=== PATIENT | male | born 1975 | race African-American/Black ===

== ENCOUNTER 2018-04-27 10:31 | Emergency (ER) | payer OTHER ==
[~2018-04-27] VITALS: Ht 180.3 cm; Wt 95.3 kg
[2018-04-27 10:43] VITALS: BP 160/102
--- NOTE | 2018-04-27 10:50 | NUR ---
PATIENT PRESENTS TO ED WITH pt states he may have drank water which may have had methamphetamines in it. states it tasted funny and he felt weird afterwards. he does not know how it may have been tainted . DENIES N/V/D; SKIN IS PINK/WARM/DRY; AAOX4 WITH EVEN AND STEADY GAIT; LUNGS CLEAR BL; HR EVEN AND tachy; PT DENIES ANY FEVER, CP, SOB, OR COUGH AT THIS TIME; PATIENT STATES PAIN OF 0/10 AT THIS TIME; VSS; PATIENT POSITIONED FOR COMFORT; HOB ELEVATED; BEDRAILS UP X2; BED DOWN. ER MD MADE AWARE OF PT STATUS.
--- NOTE | 2018-04-27 11:21 | NUR ---
Patient being evaluated by physician at bedside.
[2018-04-27 11:28] VITALS: BP 158/107
--- NOTE | 2018-04-27 11:28 | NUR ---
dc instructions and rx given to pt by Patient discharged with v/s stable. Written and verbal after care instructions given and explained. Patient alert, oriented and verbalized understanding of instructions. Ambulatory with steady gait. All questions addressed prior to discharge. ID band removed. Patient advised to follow up with PMD. Rx of lisinopril/hctz given. Patient educated on indication of medication including possible reaction and side effects. Opportunity to ask questions provided and answered.
== END 2018-04-27 11:21 | disposition home or self-care (01) ==
LOC: MED 10:31
DX: F15.129 Other stimulant abuse with intoxication, unspecified (principal); I10 Essential (primary) hypertension; F17.210 Nicotine dependence, cigarettes, uncomplicated; Z88.8 Allergy status to other drugs, medicaments and biological substances
CPT/HCPCS: 99283

== ENCOUNTER 2022-01-20 19:33 | Emergency (ER) | payer OTHER ==
[~2022-01-20] VITALS: Ht 177.8 cm; Wt 90.7 kg
--- NOTE | 2022-01-20 20:23 | NUR ---
CALLED IN THE LOBBY AND OUTSIDE, NO ANSWER
[2022-01-20 21:08] VITALS: BP 112/77
--- NOTE | 2022-01-20 21:20 | NUR ---
CAME FOR MEDICAL CHECK AND MEDICATION FOR HIV. PARTNER IS + FOR HIV. TAKING ZOLOFT AND REMERON AT HOME NO MED HX
--- NOTE | 2022-01-20 22:36 | NUR ---
PT. BIB AT BED 12
[2022-01-20] MEDS ORDERED: DOLU50TA PO (22:58)
[2022-01-20] MEDS ORDERED: EMTR1TAB12 PO (22:58)
[2022-01-20 23:16] LABS: BASOPHILS % (AUTO) 0.6 % (0.0-2.0); EOSINOPHILS # (AUTO) 0.3 K/uL (0-0.4); HEMATOCRIT 40.8 % (36-52); HEMOGLOBIN 13.4 g/dL (12.0-18.0); LYMPHOCYTES # (AUTO) 2.7 K/uL (2.0-11.5); LYMPHOCYTES % (AUTO) 55.7 % (20.5-51.1); MEAN CORPUSCULAR HEMOGLOBIN 27 pg (27-31); MEAN CORPUSCULAR HGB CONC 33 g/dL (33-37); MEAN CORPUSCULAR VOLUME 82.1 fL (80-94); MONOCYTES # (AUTO) 0.3 K/uL (0.8-1.0); MONOCYTES % (AUTO) 6.7 % (1.7-9.3); NEUTROPHILS # (AUTO) 1.5 K/uL (1.8-7.7); PLATELET COUNT (AUTO) 226 K/uL (140-450); RED BLOOD CELL COUNT(AUTO) 4.97 MIL/uL (4.20-6.10); RED CELL DISTRIBUTION WIDTH 14.6 % (11.6-13.7); WHITE BLOOD COUNT (AUTO) 4.8 K/uL (4.8-10.8)
--- NOTE | 2022-01-20 23:24 | NUR ---
46YR OLD MALE BIB SELF C/O UNPROTECTED SEX X2DAYS AGO WITH HIV POSITIVE PERSON. DENIES ANY PAIN DISCHARGE OR SOB . PT IS A&OX4 SKIN WARM AND DRY . PT IS REQUESTING SOME MEDS AND TO BE TESTED FOR HIV. OLANZAPINE QUETIAPINE TRAZONDONE PTSD DEPRESSION
[2022-01-20 23:31] LABS: ALBUMIN 3.2 g/dL (3.4-5.0); ANION GAP 5.8 (8-16); CARBON DIOXIDE 33.4 mmol/L (21-32); POTASSIUM 3.2 mmol/L (3.5-5.1); TOTAL BILIRUBIN 0.2 mg/dL (0.0-1.0)
[2022-01-20 23:52] VITALS: BP 112/77
== END 2022-01-20 23:52 | disposition home or self-care (01) ==
LOC: MED 19:33
DX: Z76.0 Encounter for issue of repeat prescription (principal)
CPT/HCPCS: 36415; 80053; 85025; 99283

== ENCOUNTER 2022-11-09 16:11 | Emergency (ER) | payer OTHER ==
[~2022-11-09] VITALS: Ht 180.3 cm; Wt 81.6 kg
[~2022-11-09 16:11] MED LIST: DOLU50TA PO; EMTR1TAB12 PO
[2022-11-09 16:39] VITALS: BP 128/77; PULSE 89; RESP 17; TEMP 97.7; O2SAT 98
== END 2022-11-09 19:16 | disposition left against medical advice (07) ==
LOC: MED 16:11
DX: G47.00 Insomnia, unspecified (principal); Z76.0 Encounter for issue of repeat prescription; Z53.21 Procedure and treatment not carried out due to patient leaving prior to being seen by health care provider
CPT/HCPCS: 99281